=== PATIENT | female | born 2000 | race Caucasian/White ===

== ENCOUNTER 2021-01-08 08:50 | Outpatient (CLI) | payer OTHER, SELFPAY ==
[2021-01-08 10:23] LABS: Source Nasal/Nares
[2021-01-08 12:42] LABS: COVID-19 PCR Negative (Negative)
== END 2021-01-08 08:51 | disposition home or self-care (01) ==
PROVIDERS: Visit Provider Family Medicine
DX: Z20.822 Contact with and (suspected) exposure to COVID-19 (principal)
CPT/HCPCS: 87635

== ENCOUNTER 2021-05-04 11:27 | Outpatient (CLI) | payer OTHER, SELFPAY ==
[2021-05-04 12:53] LABS: Source Nasal/Nares
[2021-05-04 15:35] LABS: COVID-19 PCR Negative (Negative)
== END 2021-05-04 11:28 | disposition home or self-care (01) ==
LOC: LBO 11:30
PROVIDERS: Visit Provider Nurse Practitioner Family
DX: Z20.822 Contact with and (suspected) exposure to COVID-19 (principal)
CPT/HCPCS: 87635

== ENCOUNTER 2021-05-12 10:56 | Outpatient (CLI) | payer OTHER, SELFPAY ==
[2021-05-12 12:44] LABS: Source Nasal/Nares
[2021-05-12 15:33] LABS: COVID-19 PCR Negative (Negative)
== END 2021-05-12 10:57 | disposition home or self-care (01) ==
LOC: LBO 11:07
PROVIDERS: Visit Provider Nurse Practitioner Family
DX: Z20.822 Contact with and (suspected) exposure to COVID-19 (principal)
CPT/HCPCS: 87635

== ENCOUNTER 2021-08-28 00:59 | Outpatient (CLI) | payer OTHER, SELFPAY ==
[2021-08-29 18:23] LABS: COVID-19 RT-PCR UVMMC Result Negative (Negative)
== END 2021-08-28 01:00 | disposition home or self-care (01) ==
PROVIDERS: Visit Provider Nurse Practitioner Family
DX: Z20.822 Contact with and (suspected) exposure to COVID-19 (principal)
CPT/HCPCS: U0003